=== PATIENT | male | born 1955 | race Caucasian/White ===

== ENCOUNTER 2017-09-17 10:56 | Day surgery (SDC) | payer BC ==
--- NOTE | 2017-09-17 09:10 | HP ---
DATE OF SURGERY: 09/17/2017 HISTORY OF PRESENT ILLNESS: The patient is a 61 year-old man who for two weeks occasional pain left inguinal area, flared looked on inguinal exam felt he would benefit from repair. PAST MEDICAL HISTORY: Hypercholesterolemia, heart failure, hypertension. PAST SURGICAL HISTORY: Three knee surgeries, appendectomy. MEDICATIONS: Flomax. ALLERGIES: NKDA. FAMILY HISTORY: Noncontributory. SOCIAL HISTORY: No smoking. Three beers a week but denies abuse. REVIEW OF SYSTEMS: Twelve systems reviewed per admission assessment. No chest pain or palpitations other systems negative or noncontributory as above and per preadmission questionnaire. PHYSICAL EXAMINATION: GENERAL: No acute distress. HEENT: Sclerae nonicteric. NECK: No JVD. CHEST: Equal excursion, nonlabored breathing. CVS: Regular rate and rhythm. ABDOMEN: Soft, some left inguinal pain on exam, right seems to be okay at this point. EXTREMITIES: No significant edema. NEURO: Alert, oriented, moving extremities symmetrically. No gross motor deficits noted. IMPRESSION: Left inguinal hernia. I feel the patient will benefit from repair. He was shown the risk sheet and explained the procedure in detail but not limited to bleeding or infection, risk of hematoma or seroma, swollen or firmness of incision, risk of ingrown hair, suture reaction, risk if the mesh became infected likely would need to be removed as well as risk of hernia recurrence, risk of aches, pains, burning, numbness of thigh or scrotal possibly shelter or chronic in nature possibly interfering with sexual function from a pain standpoint. General risk of anesthesia, deep venous thrombosis, pulmonary embolism, pneumonia but not limited to. He understands the general risk of chronic aches, pains, burning or numbness, possibly up to 8 to 12%. He understood all of the risk but not limited to, will proceed with open left inguinal hernia repair with mesh as an outpatient.
[~2017-09-17 10:56] MED LIST: CEFAZOLIN 2 GM-D5W BAG** 2 GM/50 ML ML IV ONE; Lactated Ringers 1,000 ML IV ONE; Lactated Ringers 1,000 ML IV SCH; Sensorcaine 0.25% 10 ML ONE
[2017-09-17] MEDS ORDERED: SUBLIMAZE 100 MCG/2 ML IV ONE (10:57)
[2017-09-17] MEDS ORDERED: Zofran 4 MG/2 ML VIAL IV ONE (10:57)
[2017-09-17] MEDS ORDERED: DIPRIVAN 200 MG/20 ML IV ONE (10:57)
[2017-09-17] MEDS ORDERED: Zemuron 100 MG/10 ML IV ONE (10:57)
[2017-09-17] MEDS ORDERED: TORAdol 30 mg Injection IV ONE (10:57)
[2017-09-17] MEDS ORDERED: Decadron 4 MG INJ IV ONE (10:57)
[2017-09-17 16:11] VITALS: BP 145/99; PULSE 60
[2017-09-17 16:13] VITALS: O2SAT 100
--- NOTE | 2017-09-18 08:24 | OP ---
SURGERY DATE/TIME: 09/17/2017 1254 PREOPERATIVE DIAGNOSIS: Left inguinal hernia. POSTOPERATIVE DIAGNOSIS: Left inguinal hernia including cord lipoma. PROCEDURES: 1) Left inguinal hernia repair with mesh. 2) Excision of cord lipoma. SURGEON: Dr. David Duran. ANESTHESIA: General. ESTIMATED BLOOD LOSS: Minimal. INDICATIONS: As noted above. Risks and benefits explained in detail and not limited to and consent obtained. DESCRIPTION OF PROCEDURE AND FINDINGS: The patient is taken to the operating room. The site had been marked in the preoperative holding area and confirmed with the patient. General anesthesia induced. The groin prepped and draped in usual sterile fashion. After official time out and no disagreement with planned procedure, a transverse incision made in the left inguinal area. Dissection carried down through adipose tissue through Gracia fascia. The external oblique split in the direction of its fibers towards the external ring carefully taking the visible ilioinguinal and iliohypogastric nerves. Cord gently mobilized up off the pubic tubercle with Adry drain. The patient is noted to have a moderately large indirect hernia, moderate direct hernia as well as a lateral cord lipoma. Cremasteric fibers carefully and a large cord lipoma out laterally that is from the cord and it is clamped and high ligated with 3-0 Vicryl suture LigaSure and passed off. Moderately large indirect hernia sac was carefully dissected down the internal ring freeing it from all the surrounding structures. It was opened and devoid of contents. It was high ligated with 0 Prolene, transected and passed off carefully protecting the cord vessels, vas and musculature. At this point attention is then turned to the direct hernia component as indicated with 0 PDS in a tension-free manner imbricating the direct hernia component downward in nice tension-free manner. It was felt the patient would benefit from mesh. A 2 x 4 piece of mesh cut to appropriate dimension secured overlying pubic tubercle with 0 Prolene right along Francois's ligament along the shelving portion of the inguinal ligament with 0 Prolene laterally past the internal ring. 0 Prolene used to transfix the rectus fascia medially. 0 Vicryl used to transfix aponeurosis internal oblique superiorly avoiding the visible iliohypogastric nerve. Keyhole had been cut. Tails of the mesh tacked together laterally with 0 Prolene lying nice and flat on the external oblique out laterally. The internal ring was felt to be not too tight. Good hemostasis noted. Copious amount of irrigation irrigating. External oblique closed with 0 Vicryl. Gracia closed with 3-0 Vicryl. Deep subcu closed with 3-0 Vicryl. Skin closed with 4-0 Vicryl. Steri-Strips and sterile dressing applied. 0.25% Marcaine local injected along the skin incision back towards the origin of inguinal nerve back towards the anterior iliac spine. The patient tolerated the procedure well. There were no immediate complications. He had moderately weak tissue so he is moderate risk for recurrence. It was felt this was the best repair as possible at this point. The patient tolerated the procedure well. There were no immediate complications. Findings were discussed with the family out in the waiting area. He was transferred to the recovery room in stable condition.
== END 2017-09-17 16:00 | disposition home or self-care (01) ==
LOC: SDC 10:56
PROVIDERS: ATTEND Surgery
PROC: 0YU60JZ Supplement Left Inguinal Region with Synthetic Substitute, Open Approach (ICD-10-PCS; principal; 2017-09-17)
PROC: 0VBG0ZX Excision of Left Spermatic Cord, Open Approach, Diagnostic (ICD-10-PCS; 2017-09-17)
DX: K40.90 Unilateral inguinal hernia, without obstruction or gangrene, not specified as recurrent (principal); D17.6 Benign lipomatous neoplasm of spermatic cord; E78.00 Pure hypercholesterolemia, unspecified; I50.9 Heart failure, unspecified; I10 Essential (primary) hypertension
CPT/HCPCS: 00830; 64486; 76942; C1781; J0690; J1100; J1885; J2405; J2704; J3010

== ENCOUNTER 2020-12-22 14:02 | Day surgery (SDC) | payer BC, MEDICARE ==
[2020-12-22] MEDS ORDERED: LIDOCAINE HCL 2% 100 MG/5 ML IJ ONE (14:03)
[2020-12-22] MEDS ORDERED: Depo-Medrol 40 MG/ML IM ONE (14:03)
[2020-12-22] MEDS ORDERED: DIPRIVAN 200 MG/20 ML IV ONE (15:43)
[2020-12-22] MEDS ORDERED: Lactated Ringers 1,000 ML IV ONE (15:59)
--- NOTE | 2020-12-22 17:36 | XRAY ---
Indication: Right L4-S1 MBB. Intraoperative fluoroscopy provided for 18 seconds. Single digital spot image submitted for interpretation demonstrates posterior needle tips projecting over the expected right L4-S1 nerve roots. Correlate with intraoperative findings/report.
--- NOTE | 2020-12-23 09:12 | XRAY ---
18 seconds fluoroscopy time in surgery for right L4-S1 MBB.
== END 2020-12-22 16:11 | disposition home or self-care (01) ==
LOC: SDC-PAIN 14:02
PROVIDERS: ATTEND Psychiatry & Neurology Pain Medicine
DX: M47.816 Spondylosis without myelopathy or radiculopathy, lumbar region (principal); M19.90 Unspecified osteoarthritis, unspecified site; K21.9 Gastro-esophageal reflux disease without esophagitis; E78.5 Hyperlipidemia, unspecified; C61 Malignant neoplasm of prostate; Z79.899 Other long term (current) drug therapy
CPT/HCPCS: 64493; 64494; 72020; 77002; J1030; J2704

== ENCOUNTER 2020-12-27 23:01 | Observation (INO) | payer BC ==
[2020-12-27 23:39] LABS: Absolute Neutrophil Ct (ANC) 8.67 (1.4-6.9); BASOPHIL % 0.2 % (0.0-0.4); Basophil (Absolute #) 0.03 (0-0.4); Eosinophil % 2.2 % (0.00-5.0); Hematocrit 43.2 % (42-50); Hemoglobin 14.7 gm/dl (12.5-18.0); Lymphocytes % 23.6 % (24.0-44.0); Mean Cell Volume 92.7 fl (78-100); Mean Corpuscular Hemoglobin 31.5 pg (26-32); Mean Platelet Volume 9.5 fl (7.5-11.0); Monocyte (Absolute #) 1.37 (0.0-1.3); Monocytes % 10.1 % (0.0-12.0); Neutrophil % 63.9 % (36.0-66.0); Platelet Count 269 K/mm3 (150-450); Red Blood Count 4.66 M/mm3 (4.1-5.6); Red Cell Distribution Width 12.2 % (11.5-14.0); White Blood Count 13.6 K/mm3 (4.0-10.5)
[2020-12-27 23:46] LABS: INR 1.05 (0.8-3.0); PROTIME 11.9 SECONDS (8.83-12.87)
[2020-12-27 23:49] LABS: PTT 26.7 SECONDS (24.1-36.1)
--- NOTE | 2020-12-27 23:53 | ERPHSYRPT ---
- History of Present Illness Historian: patient Patient Subjective Stated Complaint: pt states, "I was mowing grass and chest pain occured around 1999. It was like a dull pressure. It never really subsided but didn't get worse". Triage Nursing Assessment: pt c/o midsternal chest pain without radiation. Pt was mowing grass when it began and never subsided with rest. Pt rates pain a 3 and describes it as a dull pressure. Pt took 2 prilosec 40mg and 2 aspirin 325mg around 2029. Lungs clear, heart tones reg. Physician History: 65 yo wm w Mid-sternal CP x 4 hours which started when on riding mower. Pain is mid-sternal wo radiation, described as pressure, and 3/10 now and at max. He denies N/V/diaphoresis/dyspnea. Nothing makes the pain better or worse. He brandi es HTN/DM/Tobacco use/FH CAD but does have mild hyperlipidemia. He took 2 324 ASA after pain began. Timing/Duration: other (4hrs) Activities at Onset: other (riding mower) Quality: pressure Location: substernal Chest Pain Radiation: no radiation Severity of Pain-Max: mild Severity of Pain-Current: mild Modifying Factors: Worsens With: antacids, breathing, coughing, defecating, eating, exertion, lying down, morphine, movement, nitroglycerin, oxygen, palpation, rest, aspirin, sitting up, change in position Associated Symptoms: No nausea, No vomiting, No palpitations, No heartburn, No abdominal pain, No shortness of breath, No cough, No hurts to breathe, No diaphoresis, No chills, No fever, No fatigue, No weakness, No swelling/lump in chest, No syncope, No rash, No headache, No dizziness, No edema, No back pain Prior Chest Pain/Cardiac Workup: no prior chest pain, no prior cardiac workup Nitro Today/Relief: no nitro taken today Aspirin Treatment Today: 325 mg x 1 (325mg x2) Allergies/Adverse Reactions: No Known Drug Allergies Allergy (Verified 12/28/20 04:47) Home Medications: Tamsulosin HCl 0.4 mg [Flomax 0.4 MG] 0.4 mg PO HS 07/03/14 [History] Simvastatin 20Mg [Zocor 20Mg] 40 mg PO HS 09/17/17 [History] Hx Tetanus, Diphtheria Vaccination/Date Given: Yes Hx Influenza Vaccination/Date Given: Yes Hx Pneumococcal Vaccination/Date Given: No Immunizations Up to Date: Yes Travel Risk - International Travel Have you traveled outside of the country in past 3 weeks: No - Coronavirus Screening Are you exhibiting any of the following symptoms?: No Close contact with a COVID-19 positive Pt in past 14-21 Days: No - Vaccine Status Have you recieved a Covid-19 vaccination: Yes Client Success Director: [employer] - Vaccination Dates Date of 2cond Vaccination (if applicable): 09/13/20 - Review of Systems Constitutional: No Symptoms Eyes: No Symptoms Ears, Nose, & Throat: No Symptoms Respiratory: No Symptoms Cardiac: No Symptoms, Chest Pain Abdominal/Gastrointestinal: No Symptoms Musculoskeletal: No Symptoms Skin: No Symptoms Neurological: No Symptoms Psychological: No Symptoms Endocrine: No Symptoms Hematologic/Lymphatic: No Symptoms Immunological/Allergic: No Symptoms - Past Medical History Pertinent Past Medical History: Yes Neurological History: No Pertinent History ENT History: No Pertinent History Cardiac History: High Cholesterol Respiratory History: No Pertinent History Endocrine Medical History: No Pertinent History Musculoskeletal History: Fractures GI Medical History: No Pertinent History History: No Pertinent History Psycho-Social History: No Pertinent History Male Reproductive Disorders: Prostate Cancer Other Medical History: BILATERAL KNEE SCOPES; PROSTATE CA,radiation tx, fx fingers, toes - Past Surgical History Past Surgical History: Yes Neuro Surgical History: No Pertinent History Cardiac: No Pertinent History Respiratory: No Pertinent History Gastrointestinal: Appendectomy, Hernia Repair, Other Genitourinary: No Pertinent History Musculoskeletal: Orthopedic Surgery Male Surgical History: No Pertinent History Other Surgical History: previous colonoscopies, 3 knee surgeries,rotator cuff - Social History Smoking Status: Never smoker Exposure to second hand smoke: No Drug Use: none Patient Lives Alone: No Significant Family History: no pertinent family hx - Nursing Vital Signs Nursing Vital Signs: Initial Vital Signs Pulse Rate 72 12/27/20 23:02 Respiratory Rate 22 12/27/20 23:02 Blood Pressure 153/103 12/27/20 23:02 O2 Sat by Pulse Oximetry 95 12/27/20 23:02 Pain Scale Pain Intensity 0 Hypertensive - Physical Exam General Appearance: no apparent distress Eye Exam: PERRL/EOMI, eyes nml inspection Ears, Nose, Throat Exam: normal ENT inspection, TMs normal, pharynx normal, moist mucous membranes Neck Exam: normal inspection, non-tender, supple, full range of motion, No meningismus, No mass, No Brudzinski, No Kernig's Respiratory Exam: normal breath sounds, lungs clear, airway intact, No respiratory distress Cardiovascular Exam: regular rate/rhythm, normal heart sounds, normal peripheral pulses, No murmur Gastrointestinal/Abdomen Exam: soft, normal bowel sounds, No tenderness Back Exam: normal inspection, normal range of motion, No CVA tenderness Extremity Exam: normal inspection, normal range of motion Neurologic Exam: alert, oriented x 3, cooperative, shagger II-XII nml as tested, normal mood/affect, nml cerebellar function, nml station & gait, sensation nml, No motor deficits, No sensory deficit Skin Exam: normal color, warm, dry Lymphatic Exam: No adenopathy SpO2 Interpretation: normal SpO2: 95 O2 Delivery: Room Air - Course EKG Interpreted by Me: RATE (NSR/R69/Flipped T waves3-AVF/Normal QT-QTc/Low voltage) Ordered Tests: Active Orders 24 hr Category Date Time Status EKG-ER Only STAT Care 12/27/20 23:23 Completed Heart-Healthy Diet Diet 12/28/20 Breakfast Active CHEST 1 VIEW (PORTABLE) Stat Exams 12/27/20 23:24 Taken CBC W DIFF Stat Lab 12/27/20 23:30 Completed CMP Stat Lab 12/27/20 23:30 Completed LIPID PROFILE AM.LAB Lab 12/28/20 04:00 Completed MAGNESIUM Stat Lab 12/27/20 23:30 Completed NT PRO BNP Stat Lab 12/27/20 23:30 Completed PROTIME WITH INR Stat Lab 12/27/20 23:30 Completed PTT Stat Lab 12/27/20 23:30 Completed TROPONIN AM.LAB Lab 12/28/20 04:00 Completed TROPONIN Q3H Lab 12/27/20 23:30 Completed TROPONIN Q3H Lab 12/28/20 02:00 Completed TROPONIN Q3H Lab 12/28/20 08:30 Ordered TROPONIN Q3H Lab 12/28/20 11:30 Ordered Transfer Order Routine Transfer 12/28/20 Completed Medication Summary Generic Name Dose Route Start Last Admin Trade Name Freq PRN Reason Stop Dose Admin Acetaminophen 650 mg 12/28/20 02:48 Tylenol 325 Mg PO 01/27/21 02:47 Q4H PRN PRN PAIN AND/OR FEVER Al Hydrox/Mg Hydrox/Simethicone 30 ml 12/28/20 02:48 Maalox Es 30 Ml Unit Dose PO 01/27/21 02:47 Q4H PRN PRN INDIGESTION Aspirin 325 mg 12/28/20 10:00 Ecotrin 325 Mg PO 01/27/21 09:59 DAILY CRISTIAN Famotidine 20 mg 12/28/20 10:00 Pepcid 20 Mg Vial IV 01/27/21 09:59 Q12HT CRISTIAN Magnesium Hydroxide 30 - 60 ml 12/28/20 02:48 Milk Of Magnesia 30 Ml PO 01/27/21 02:47 QDP PRN CONSTIPATION Nitroglycerin 0.4 mg 12/28/20 02:48 Nitrostat 0.4 Mg Tablet SL 01/27/21 02:47 .Q5MIN PRN CHEST PAIN Ondansetron HCl 4 mg 12/28/20 02:48 Zofran 4 Mg/2 Ml Vial IV 01/27/21 02:47 Q4H PRN PRN NAUSEA/VOMITING Senna/Docusate Sodium 2 udtab 12/28/20 02:48 Senokot-S Tablet PO 01/27/21 02:47 BID PRN PRN CONSTIPATION Lab/Rad Data: Laboratory Result Diagrams 12/27/20 23:30 12/27/20 23:30 Laboratory Results 12/28/20 12/28/20 12/28/20 Range/Units 04:00 03:10 02:00 WBC (4.0-10.5) K/mm3 RBC (4.1-5.6) M/mm3 Hgb (12.5-18.0) gm/dl Hct (42-50) % MCV (78-100) fl MCH (26-32) pg MCHC (32-36) g/dl RDW (11.5-14.0) % Plt Count (150-450) K/mm3 MPV (7.5-11.0) fl Gran % (36.0-66.0) % Eos # (Auto) (0-0.5) Absolute Lymphs (auto) (1.0-4.6) Absolute Monos (auto) (0.0-1.3) Lymphocytes % (24.0-44.0) % Monocytes % (0.0-12.0) % Eosinophils % (0.00-5.0) % Basophils % (0.0-0.4) % Absolute Granulocytes (1.4-6.9) Basophils # (0-0.4) PT (8.83-12.87) SECONDS INR (0.8-3.0) APTT (24.1-36.1) SECONDS Sodium (137-145) mmol/L Potassium (3.5-5.1) mmol/L Chloride (98-107) mmol/L Carbon Dioxide (22-30) mmol/L Anion Gap (5-15) MEQ/L BUN (9-20) mg/dL Creatinine (0.66-1.25) mg/dL Estimated GFR ML/MIN Glucose (74-106) mg/dL Calcium (8.4-10.2) mg/dL Magnesium (1.6-2.3) mg/dL Total Bilirubin (0.2-1.3) mg/dL AST (17-59) U/L ALT (0-50) U/L Alkaline Phosphatase (38-126) U/L Troponin I < 0.012 < 0.012 (0.000-0.034) ng/mL NT-Pro-B Natriuret Pep (0-900) pg/mL Serum Total Protein (6.3-8.2) g/dL Albumin (3.5-5.0) g/dL Triglycerides 170 H (30-150) mg/dL Cholesterol 198 (50-200) mg/dL LDL Cholesterol 123 H (30-100) mg/dL HDL Cholesterol 48 (40-60) mg/dL Heart Disease Risk Ratio 4.1 SARS-CoV-2 (PCR) NEGATIVE (NEGATIVE) 12/27/20 12/27/20 12/27/20 Range/Units 23:30 23:30 23:30 WBC (4.0-10.5) K/mm3 RBC (4.1-5.6) M/mm3 Hgb (12.5-18.0) gm/dl Hct (42-50) % MCV (78-100) fl MCH (26-32) pg MCHC (32-36) g/dl RDW (11.5-14.0) % Plt Count (150-450) K/mm3 MPV (7.5-11.0) fl Gran % (36.0-66.0) % Eos # (Auto) (0-0.5) Absolute Lymphs (auto) (1.0-4.6) Absolute Monos (auto) (0.0-1.3) Lymphocytes % (24.0-44.0) % Monocytes % (0.0-12.0) % Eosinophils % (0.00-5.0) % Basophils % (0.0-0.4) % Absolute Granulocytes (1.4-6.9) Basophils # (0-0.4) PT 11.9 (8.83-12.87) SECONDS INR 1.05 (0.8-3.0) APTT 26.7 (24.1-36.1) SECONDS Sodium 137 (137-145) mmol/L Potassium 3.6 (3.5-5.1) mmol/L Chloride 104 (98-107) mmol/L Carbon Dioxide 23 (22-30) mmol/L Anion Gap 13.7 (5-15) MEQ/L BUN 27 H (9-20) mg/dL Creatinine 1.01 (0.66-1.25) mg/dL Estimated GFR > 60.0 ML/MIN Glucose 113 H (74-106) mg/dL Calcium 9.4 (8.4-10.2) mg/dL Magnesium 2.0 (1.6-2.3) mg/dL Total Bilirubin 0.90 (0.2-1.3) mg/dL AST 25 (17-59) U/L ALT 35 (0-50) U/L Alkaline Phosphatase 58 (38-126) U/L Troponin I < 0.012 (0.000-0.034) ng/mL NT-Pro-B Natriuret Pep 29.0 (0-900) pg/mL Serum Total Protein 7.1 (6.3-8.2) g/dL Albumin 4.4 (3.5-5.0) g/dL Triglycerides (30-150) mg/dL Cholesterol (50-200) mg/dL LDL Cholesterol (30-100) mg/dL HDL Cholesterol (40-60) mg/dL Heart Disease Risk Ratio SARS-CoV-2 (PCR) (NEGATIVE) 12/27/20 Range/Units 23:30 WBC 13.6 H (4.0-10.5) K/mm3 RBC 4.66 (4.1-5.6) M/mm3 Hgb 14.7 (12.5-18.0) gm/dl Hct 43.2 (42-50) % MCV 92.7 (78-100) fl MCH 31.5 (26-32) pg MCHC 34.0 (32-36) g/dl RDW 12.2 (11.5-14.0) % Plt Count 269 (150-450) K/mm3 MPV 9.5 (7.5-11.0) fl Gran % 63.9 (36.0-66.0) % Eos # (Auto) 0.30 (0-0.5) Absolute Lymphs (auto) 3.20 (1.0-4.6) Absolute Monos (auto) 1.37 H (0.0-1.3) Lymphocytes % 23.6 L (24.0-44.0) % Monocytes % 10.1 (0.0-12.0) % Eosinophils % 2.2 (0.00-5.0) % Basophils % 0.2 (0.0-0.4) % Absolute Granulocytes 8.67 H (1.4-6.9) Basophils # 0.03 (0-0.4) PT (8.83-12.87) SECONDS INR (0.8-3.0) APTT (24.1-36.1) SECONDS Sodium (137-145) mmol/L Potassium (3.5-5.1) mmol/L Chloride (98-107) mmol/L Carbon Dioxide (22-30) mmol/L Anion Gap (5-15) MEQ/L BUN (9-20) mg/dL Creatinine (0.66-1.25) mg/dL Estimated GFR ML/MIN Glucose (74-106) mg/dL Calcium (8.4-10.2) mg/dL Magnesium (1.6-2.3) mg/dL Total Bilirubin (0.2-1.3) mg/dL AST (17-59) U/L ALT (0-50) U/L Alkaline Phosphatase (38-126) U/L Troponin I (0.000-0.034) ng/mL NT-Pro-B Natriuret Pep (0-900) pg/mL Serum Total Protein (6.3-8.2) g/dL Albumin (3.5-5.0) g/dL Triglycerides (30-150) mg/dL Cholesterol (50-200) mg/dL LDL Cholesterol (30-100) mg/dL HDL Cholesterol (40-60) mg/dL Heart Disease Risk Ratio SARS-CoV-2 (PCR) (NEGATIVE) - Progress Progress: improved Progress Note: 12/28/20 02:[address] Cortés 12/28/20 02:52 Pain decreased from 3 to 2 during stay. He experienced no dyspnea/diaphoresis/N/V/radiation of pain during stay. Observed due to age/believable story/subtle EKG changes as compared to previous Discussed with .: Lashawn Will see patient in: hospital (observation) Counseled pt/family regarding: lab results, diagnosis, rad results - Departure Departure Disposition: Observation Clinical Impression: Chest pain Condition: Stable Critical Care Time: No
[2020-12-28] LABS: ALBUMIN 4.4 g/dL (3.5-5.0); ALKALINE PHOSPHATASE 58 U/L (38-126); ANION GAP 13.7 MEQ/L (5-15); BLOOD UREA NITROGEN 27 mg/dL (9-20); CHLORIDE 104 mmol/L (98-107); Calcium 9.4 mg/dL (8.4-10.2); Carbon Dioxide 23 mmol/L (22-30); Creatinine 1 1.01 mg/dL (0.66-1.25); EST GLOMERULAR FILTRATION RATE > 60.0 ML/MIN; Glucose 113 mg/dL (74-106); Potassium 3.6 mmol/L (3.5-5.1); SGOT/AST 25 U/L (17-59); SGPT/ALT 35 U/L (0-50); SODIUM 137 mmol/L (137-145); Total Protein 7.1 g/dL (6.3-8.2)
[2020-12-28] MEDS ORDERED: Senokot-S Tablet PO PRN (02:48)
[2020-12-28] MEDS ORDERED: Zofran 4 MG/2 ML VIAL IV PRN (02:48)
[2020-12-28] MEDS ORDERED: Nitrostat 0.4 MG Tablet SL PRN (02:48)
[2020-12-28] MEDS ORDERED: MAALOX ES 30 ML UNIT DOSE PO PRN (02:48)
[2020-12-28] MEDS ORDERED: TYLENOL 325 MG PO PRN (02:48)
[2020-12-28] MEDS ORDERED: MILK OF MAGNESIA 30 ML PO PRN (02:48)
[2020-12-28 05:56] LABS: Cholesterol 198 mg/dL (50-200); HDL CHOLESTEROL 48 mg/dL (40-60); LDL, DIRECT 123 mg/dL (30-100); Risk Ratio 4.1; TRIGLYCERIDE 170 mg/dL (30-150); TROPONIN < 0.012 ng/mL (0.000-0.034)
[2020-12-28 07:50] VITALS: BP 124/77; PULSE 60; O2SAT 94
--- NOTE | 2020-12-28 08:58 | XRAY ---
Indication: Chest pain. Comparison: July 20, 2008. Portable chest less inflated accentuating cardiac silhouette and crowding lung bases with left base atelectasis. No acute cardiopulmonary abnormalities. Bony thorax intact.
[2020-12-28] MEDS ORDERED: Ecotrin 325 MG PO SCH (10:00)
[2020-12-28] MEDS ORDERED: Pepcid 20 MG VIAL IV SCH (10:00)
--- NOTE | 2020-12-28 11:24 | SSS ---
DISCHARGE DIAGNOSIS: CHEST PAIN. HOSPITAL COURSE: The patient is a 65 year-old white male patient who was out mowing the grass. He reported he had some chest pressure that lasted for several hours in fact was not relieved and so he came to the emergency room. He said he has been having this problem off and on that last up to an hour. He has not been evaluated previously. He does not have a wood calker. He reported remotely he had an issue with atrial fibrillation at one point but apparently that has resolved. The patient described his chest pain as being 3 on a scale of 1 to 10. Currently he is pain free. PAST MEDICAL/SURGICAL HISTORY: The patient's medical history is significant otherwise for hyperlipidemia and benign prostatic hypertrophy. He has history of prostate cancer. He has had knees scoped previously. He had radiation treatment for his chronic prostate problem. MEDICATIONS: Flomax 0.4 mg at night and Simvastatin 40 mg also at night. ALLERGIES: NKDA. PHYSICAL EXAMINATION: His vital signs showed temperature to be afebrile. His pulse was 72, respiratory rate 22, blood pressure 153/103. O2 saturation was 95%. HEENT: Normocephalic, atraumatic. Pupils equal round reactive to light. Extraocular movements intact. Oropharynx is pink and moist. NECK: Supple without lymphadenopathy, thyromegaly or JVD. CHEST: Clear to auscultation. HEART: Regular rate and rhythm without murmurs, rubs or gallops. ABDOMEN: Soft. No palpable masses. EXTREMITIES: Without cyanosis, clubbing or edema. NEUROLOGIC: The patient is alert and oriented x3. No focal deficits. LAB DATA AND TESTS: The patient's studies showed EKG which showed some mild lateral T-wave conversion on one EKG but since then it has normalized. His laboratory studies he has had troponins that have all been less than 0.012. His metabolic panel was essentially normal. Sugar of 113, BUN 27, creatinine 1.01. Liver enzymes were normal. His INR was 1.05. His CBC showed a white count of 13.6, hemoglobin 14.7, PLT count 269,000. His COVID test was negative. He had a lipid panel showing HDL of 48, LDL of 123 and triglycerides were normal. ASSESSMENT: The patient is now chest pain free. Due to the nature of his chest pain, we discussed with him and given an appointment to see a wood calker. He is to follow up in our office in one week.
[2020-12-28] MEDS ORDERED: ZOCOR 20MG PO SCH (22:00)
[2020-12-28] MEDS ORDERED: Flomax 0.4 MG PO SCH (22:00)
== END 2020-12-28 10:06 | disposition home or self-care (01) ==
LOC: ED 23:01 → MED SURG 12-28 04:35
PROVIDERS: ADMIT Family Medicine; ATTEND Family Medicine
DX: R07.9 Chest pain, unspecified (principal); Z20.828 Contact with and (suspected) exposure to other viral communicable diseases; E78.5 Hyperlipidemia, unspecified; Z85.46 Personal history of malignant neoplasm of prostate; Z79.899 Other long term (current) drug therapy
CPT/HCPCS: 36000; 36415; 71045; 80053; 80061; 83721; 83735; 83880; 84484; 85025; 85610; 85730; 93005; 93268; 94760; 99285; G0378; U0003

== ENCOUNTER 2022-12-12 06:22 | Day surgery (SDC) | payer MEDICARE ==
[2022-12-12 07:06] VITALS: O2SAT 96
[2022-12-12] MEDS ORDERED: Lactated Ringers 1,000 ML IV ONE (07:12)
[2022-12-12] MEDS ORDERED: Lactated Ringers 1,000 ML IV SCH (07:30)
[2022-12-12] MEDS ORDERED: Xylocaine-Mpf 2% 5 Ml Vial ONE (07:55)
[2022-12-12] MEDS ORDERED: DIPRIVAN 200 MG/20 ML IV ONE ×2 (07:55→08:15)
[2022-12-12 08:57] VITALS: BP 115/68; PULSE 65
--- NOTE | 2022-12-12 12:55 | OP ---
SURGERY DATE/TIME: 12/12/2022 0800 PREOPERATIVE DIAGNOSIS: Screening exam. POSTOPERATIVE DIAGNOSIS: Mild sigmoid diverticulosis otherwise normal colon. PROCEDURE: Colonoscopy. SURGEON: Dr. Cortés. ANESTHESIA: MAC. Medications given by anesthesia department. HISTORY: The patient is a 67-year-old white male presenting now for screening colonoscopy. The patient was appraised of the risks of the procedure including the risk of perforation, phlebitis, untoward reaction to medication, bleeding and missed lesions. The patient verbalized his understanding and desired to have the procedure performed. DESCRIPTION OF PROCEDURE: The patient was given the medications by the anesthesia department. He had continuous pulse oximetry, ECG monitoring and intermittent blood pressure monitoring during the examination. He was placed in the left lateral decubitus position. A digital rectal examination was performed and revealed normal anal sphincter tone, no masses and a normal prostate. The flexible Olympus pediatric colonoscope was used to intubate the rectum. A view of the colon was developed sequentially to the cecum. Upon insertion and withdrawal there is mild to moderate sigmoid diverticulosis otherwise no mucosal lesions were encountered. The scope was removed from the patient who tolerated the procedure well and was sent back to OP recovery in good condition. The prep was noted to be good.
== END 2022-12-12 08:58 | disposition home or self-care (01) ==
LOC: SDC 06:22
PROVIDERS: ATTEND Family Medicine
DX: Z12.11 Encounter for screening for malignant neoplasm of colon (principal); K57.30 Diverticulosis of large intestine without perforation or abscess without bleeding
CPT/HCPCS: J2704